=== PATIENT | male | born 1950 | race Caucasian/White ===

== ENCOUNTER 2022-09-19 10:48 | Emergency (ER) | payer MEDICAID, SELFPAY ==
--- NOTE | ~2022-09-19 | XR_ITS ---
EXAMINATION: XR CHEST CLINICAL INFORMATION: Chest pain COMPARISON: None available. TECHNIQUE: 2 views of the chest were obtained. FINDINGS: The lung reeedr are felt to be grossly clear. No infiltrate. No effusion. The cardiac silhouette is within normal limits. Tortuous versus ectatic arch and descending aorta are noted. The hilar structures do not appear pathologically enlarged. XR/XR chest 2V IMPRESSION: No acute finding. As described tortuous versus ectatic arch and descending aorta
--- NOTE | 2022-09-19 10:51 | ECG_ITS ---
Test Reason : CHEST PASIN Blood Pressure : / mmHG Vent. Rate : 055 BPM Atrial Rate : 055 BPM P-R Int : 180 ms QRS Dur : 090 ms QT Int : 442 ms P-R-T Axes : 031 -16 023 degrees QTc Int : 422 ms Sinus bradycardia Minimal voltage criteria for LVH, may be normal variant ( R in aVL ) Borderline ECG No previous ECGs available Referred By: Generic ED Physician Electronically Signed By:MOHSEN BURGESS MD
[2022-09-19 11:05] VITALS: BP 168/52; PULSE 56; RESP 18; TEMP 36.2; O2SAT 97; BMI 29.9
--- NOTE | 2022-09-19 11:06 | ED.GENADULT ---
HPI - General Adult General Chief complaint: Chest Pain <Agustin Martinez - Last Filed: 09/19/22 11:07> Stated complaint: chest pain/ HBP <Agustin Martinez - Last Filed: 09/19/22 11:07> Time Seen by Provider: 09/19/22 16:36 <Agustin Martinez - Last Filed: 09/19/22 11:07> Source: patient <Ricardo Duncan MD - Last Filed: 09/19/22 19:43> Mode of arrival: ambulatory <Ricardo Duncan MD - Last Filed: 09/19/22 19:43> Limitations: no limitations <Ricardo Duncan MD - Last Filed: 09/19/22 19:43> History of Present Illness HPI narrative: Patient bonilla speaking only came with his daughter for off and on chest pain for 2 months patient does have history of hypertension hyperlipidemia had carotid angiogram which showed 80% blockage of the right carotid artery and had a cardiac CT than 08/16 which showed 80% blockage off diagonal coronary artery today while resting at home around 08:00 had chest pain which has been left side with left lasted for half an hour no diaphoresis no nausea no vomiting for the slight short of breath on arrival patient denies any chest patient does take aspirin and Plavix pain is episodic to 3 times a week get worse on exertion prior to today had chest pain 3 days ago <Ricardo Duncan MD - Last Filed: 09/19/22 19:43> Related Data Allergies/adverse reactions: Allergies Allergy/AdvReac Type Severity Reaction Status Date / Time No Known Allergies Allergy Verified 09/19/22 11:04 <Agustin Martinez - Last Filed: 09/19/22 11:07> Review of Systems Review of Systems: Yes all other systems are reviewed and are negative <Ricardo Duncan MD - Last Filed: 09/19/22 19:43> [facility] Social History Social History: Social History Use of substances other than those prescribed or required for medical reasons: No Any prior treatment program specific to substance use: No Advance Directives: No Advance Directives Information Provided: No <Agustin Martinez - Last Filed: 09/19/22 11:07> Physical Exam ED Vital Signs: Vital Signs - 24 hr 09/19/22 11:05 09/19/22 15:59 09/19/22 18:00 Temperature 97.2 F 98.1 F 97.8 F Pulse Rate 56 50 50 Respiratory Rate 18 20 20 Blood Pressure 168/52 H 160/68 H 150/74 H Pulse Oximetry 97 98 97 Oxygen Delivery Method Room Air Room Air Room Air BMI result Body Mass Index 29.9 <Agustin Martinez - Last Filed: 09/19/22 11:07> Vital Signs - 24 hr 09/19/22 11:05 09/19/22 15:59 09/19/22 18:00 Temperature 97.2 F 98.1 F 97.8 F Pulse Rate 56 50 50 Respiratory Rate 18 20 20 Blood Pressure 168/52 H 160/68 H 150/74 H Pulse Oximetry 97 98 97 Oxygen Delivery Method Room Air Room Air Room Air BMI result Body Mass Index 29.9 <Ricardo Duncan MD - Last Filed: 09/19/22 19:43> Appearance: Alert. Oriented X3. No acute distress. No chest pain at this time Eyes: PERRLA, No Nystagmus ENT: Pharynx normal. Oral Mucosa moist Neck: Normal inspection. Neck supple. CVS: Normal heart rate and rhythm. Pulses normal. Respiratory: No respiratory distress. Equal air entry bilateral, no wheezing/rales/rhonchi Abdomen: Soft and nontender. Bowel sounds are present, no mass palpable, no CVA tenderness Skin: Skin warm and dry. Normal skin color. Normal skin turgor. Extremities: No lower extremity edema. No calf tenderness Neuro: Oriented X 3. No motor deficit. No sensory deficit.No cerebellar signs , cranial nerves II-XII intact <Ricardo Duncan MD - Last Filed: 09/19/22 19:43> Course Course Course Narrative: RME- 72-year-old was primarily Arabic speaking presents for evaluation of left-sided chest pain has been present for about 1 week. Plan for EKG, chest x-ray, labs. <Agustin Martinez - Last Filed: 09/19/22 11:07> Medications Administered Discontinued Medications Generic Name Dose Route Start Last Admin Trade Name Freq PRN Reason Stop Dose Admin Aspirin 162 mg 09/19/22 17:06 09/19/22 17:12 Aspirin 81 Mg Tab.Chew PO 09/19/22 17:07 162 mg ONCE ONE Administration <Agustin Martinez - Last Filed: 09/19/22 11:07> Medications Administered Discontinued Medications Generic Name Dose Route Start Last Admin Trade Name Jessica PRN Reason Stop Dose Admin Aspirin 162 mg 09/19/22 17:06 09/19/22 17:12 Aspirin 81 Mg Tab.Chew PO 09/19/22 17:07 162 mg ONCE ONE Administration <Ricardo Duncan MD - Last Filed: 09/19/22 19:43> Medical Decision Making Lab Data MDM Lab Attestation statement: I reviewed the patient's lab results. <Ricardo Duncan MD - Last Filed: 09/19/22 19:43> Result Diagrams: 09/19/22 11:04 09/19/22 11:04 <Agustin Martinez - Last Filed: 09/19/22 11:07> Labs: Lab Results 09/19/22 09/19/22 09/19/22 Range/Units 11:04 11:04 11:04 WBC 5.9 (4.8-10.8) X10*3/uL RBC 4.86 (4.60-5.80) X10*6/uL Hgb 14.5 (14.0-18.0) g/dl Hct 41.7 L (42.0-52.0) % MCV 85.8 (80.0-98.0) fL MCH 29.8 (27.0-33.0) pg MCHC 34.8 (31.0-36.0) g/dl RDW 13.0 (11.0-16.0) % Plt Count 174 (160-400) X10*3/uL MPV 10.8 (9.4-12.4) fL Immature Gran % (Auto) 0.3 (0.0-0.4) % Neut % (Auto) 57.0 (45-73) % Lymph % (Auto) 31.0 (20-40) % [place] % (Auto) 7.6 (2-11) % Eos % (Auto) 3.4 (0-4) % Baso % (Auto) 0.7 (0-2) % Lymph # (Auto) 1.8 (1.2-4.9) X10*3/uL [place] # (Auto) 0.5 (0.1-1.2) X10*3/uL Eos # (Auto) 0.2 (0.0-0.4) X10*3/uL Baso # (Auto) 0.0 (0.0-0.2) X10*3/uL Abs Immat Gran (auto) 0.02 (0.00-0.03) X10*3/uL Absolute Neuts (auto) 3.4 (2.0-8.3) x10*3/uL Absolute Nucleated RBC 0.000 (0.0-0.012) X10*3/uL Nucleated RBC % (auto) 0.0 (0.0-0.2) /100WBC PT (10.0-13.1) SEC INR (0.9-1.1) APTT (26.0-36.4) SEC Sodium 138 (135-145) mmol/L Potassium 4.0 (3.3-5.1) mmol/L Chloride 105 (96-108) mmol/L Carbon Dioxide 23 (22-29) mmol/L Anion Gap 14 (12-20) BUN 14 (9-16) mg/dL Creatinine 0.89 (0.5-1.4) mg/dL Estim Creat Clear Calc 77.3 Estimated GFR > 60 Random Glucose 131 H (60-115) mg/dL Calcium 9.4 (8.4-10.2) mg/dL Phosphorus 3.3 (2.7-4.5) mg/dL Magnesium 1.9 (1.6-2.6) mg/dL Troponin I High Sens < 3.5 (<3.5-35.0) ng/L 09/19/22 09/19/22 Range/Units 18:26 18:26 WBC (4.8-10.8) X10*3/uL RBC (4.60-5.80) X10*6/uL Hgb (14.0-18.0) g/dl Hct (42.0-52.0) % MCV (80.0-98.0) fL MCH (27.0-33.0) pg MCHC (31.0-36.0) g/dl RDW (11.0-16.0) % Plt Count (160-400) X10*3/uL MPV (9.4-12.4) fL Immature Gran % (Auto) (0.0-0.4) % Neut % (Auto) (45-73) % Lymph % (Auto) (20-40) % [place] % (Auto) (2-11) % Eos % (Auto) (0-4) % Baso % (Auto) (0-2) % Lymph # (Auto) (1.2-4.9) X10*3/uL [place] # (Auto) (0.1-1.2) X10*3/uL Eos # (Auto) (0.0-0.4) X10*3/uL Baso # (Auto) (0.0-0.2) X10*3/uL Abs Immat Gran (auto) (0.00-0.03) X10*3/uL Absolute Neuts (auto) (2.0-8.3) x10*3/uL Absolute Nucleated RBC (0.0-0.012) X10*3/uL Nucleated RBC % (auto) (0.0-0.2) /100WBC PT 11.8 (10.0-13.1) SEC INR 1.0 (0.9-1.1) APTT 26.5 (26.0-36.4) SEC Sodium (135-145) mmol/L Potassium (3.3-5.1) mmol/L Chloride (96-108) mmol/L Carbon Dioxide (22-29) mmol/L Anion Gap (12-20) BUN (9-16) mg/dL Creatinine (0.5-1.4) mg/dL Estim Creat Clear Calc Estimated GFR Random Glucose (60-115) mg/dL Calcium (8.4-10.2) mg/dL Phosphorus (2.7-4.5) mg/dL Magnesium (1.6-2.6) mg/dL Troponin I High Sens < 3.5 (<3.5-35.0) ng/L <Agustin Martinez - Last Filed: 09/19/22 11:07> Lab Results 09/19/22 09/19/2223 Range/Units 11:04 11:04 11:04 WBC 5.9 (4.8-10.8) X10*3/uL RBC 4.86 (4.60-5.80) X10*6/uL Hgb 14.5 (14.0-18.0) g/dl Hct 41.7 L (42.0-52.0) % MCV 85.8 (80.0-98.0) fL MCH 29.8 (27.0-33.0) pg MCHC 34.8 (31.0-36.0) g/dl RDW 13.0 (11.0-16.0) % Plt Count 174 (160-400) X10*3/uL MPV 10.8 (9.4-12.4) fL Immature Gran % (Auto) 0.3 (0.0-0.4) % Neut % (Auto) 57.0 (45-73) % Lymph % (Auto) 31.0 (20-40) % [place] % (Auto) 7.6 (2-11) % Eos % (Auto) 3.4 (0-4) % Baso % (Auto) 0.7 (0-2) % Lymph # (Auto) 1.8 (1.2-4.9) X10*3/uL [place] # (Auto) 0.5 (0.1-1.2) X10*3/uL Eos # (Auto) 0.2 (0.0-0.4) X10*3/uL Baso # (Auto) 0.0 (0.0-0.2) X10*3/uL Abs Immat Gran (auto) 0.02 (0.00-0.03) X10*3/uL Absolute Neuts (auto) 3.4 (2.0-8.3) x10*3/uL Absolute Nucleated RBC 0.000 (0.0-0.012) X10*3/uL Nucleated RBC % (auto) 0.0 (0.0-0.2) /100WBC PT (10.0-13.1) SEC INR (0.9-1.1) APTT (26.0-36.4) SEC Sodium 138 (135-145) mmol/L Potassium 4.0 (3.3-5.1) mmol/L Chloride 105 (96-108) mmol/L Carbon Dioxide 23 (22-29) mmol/L Anion Gap 14 (12-20) BUN 14 (9-16) mg/dL Creatinine 0.89 (0.5-1.4) mg/dL Estim Creat Clear Calc 77.3 Estimated GFR > 60 Random Glucose 131 H (60-115) mg/dL Calcium 9.4 (8.4-10.2) mg/dL Phosphorus 3.3 (2.7-4.5) mg/dL Magnesium 1.9 (1.6-2.6) mg/dL Troponin I High Sens < 3.5 (<3.5-35.0) ng/L 09/19/22 09/19/22 Range/Units 18:26 18:26 WBC (4.8-10.8) X10*3/uL RBC (4.60-5.80) X10*6/uL Hgb (14.0-18.0) g/dl Hct (42.0-52.0) % MCV (80.0-98.0) fL MCH (27.0-33.0) pg MCHC (31.0-36.0) g/dl RDW (11.0-16.0) % Plt Count (160-400) X10*3/uL MPV (9.4-12.4) fL Immature Gran % (Auto) (0.0-0.4) % Neut % (Auto) (45-73) % Lymph % (Auto) (20-40) % [place] % (Auto) (2-11) % Eos % (Auto) (0-4) % Baso % (Auto) (0-2) % Lymph # (Auto) (1.2-4.9) X10*3/uL [place] # (Auto) (0.1-1.2) X10*3/uL Eos # (Auto) (0.0-0.4) X10*3/uL Baso # (Auto) (0.0-0.2) X10*3/uL Abs Immat Gran (auto) (0.00-0.03) X10*3/uL Absolute Neuts (auto) (2.0-8.3) x10*3/uL Absolute Nucleated RBC (0.0-0.012) X10*3/uL Nucleated RBC % (auto) (0.0-0.2) /100WBC PT 11.8 (10.0-13.1) SEC INR 1.0 (0.9-1.1) APTT 26.5 (26.0-36.4) SEC Sodium (135-145) mmol/L Potassium (3.3-5.1) mmol/L Chloride (96-108) mmol/L Carbon Dioxide (22-29) mmol/L Anion Gap (12-20) BUN (9-16) mg/dL Creatinine (0.5-1.4) mg/dL Estim Creat Clear Calc Estimated GFR Random Glucose (60-115) mg/dL Calcium (8.4-10.2) mg/dL Phosphorus (2.7-4.5) mg/dL Magnesium (1.6-2.6) mg/dL Troponin I High Sens < 3.5 (<3.5-35.0) ng/L <Ricardo Dnucan MD - Last Filed: 09/19/22 19:43> Independent Interpretation I performed an independent interpretation of an: EKG <Ricardo Duncan MD - Last Filed: 09/19/22 19:43> Interpretation: Sinus bradycardia heart rate 55 beats per minute normal intervals LVH no acute ST changes no acute ischemia <Ricardo Duncan MD - Last Filed: 09/19/22 19:43> Discharge Plan Discharge Clinical Impression: Chest pain <Agustin Martinez - Last Filed: 09/19/22 11:07> Patient Disposition: Home, Self-Care <Agustin Martinez - Last Filed: 09/19/22 11:07> Instructions: Chest Pain (ED) <Agustin Martinez - Last Filed: 09/19/22 11:07> Additional Instructions: Continue your all medication including aspirin and Plavix follow up with grounds person in 2-3 days Report to ER if recurs of pain <Agustin Martinez - Last Filed: 09/19/22 11:07> Referrals: Barber Bailey MD [Physician] - 3 days <Agustin Martinez - Last Filed: 09/19/22 11:07>
[2022-09-19 11:11] LABS: MANUAL DIFF FLAG NO
[2022-09-19 11:13] LABS: Basophils Percent Auto 0.7 % (0-2); Eosinophils Absolute Auto 0.2 X10*3/uL (0.0-0.4); Eosinophils Percent Auto 3.4 % (0-4); Hematocrit 41.7 % (42.0-52.0); Hemoglobin 14.5 g/dl (14.0-18.0); Imm Gran Abs Auto 0.02 X10*3/uL (0.00-0.03); Imm Gran Pct Auto 0.3 % (0.0-0.4); Lymphocytes Absolute Auto 1.8 X10*3/uL (1.2-4.9); Mean Corpuscular HGB Conc 34.8 g/dl (31.0-36.0); Mean Corpuscular Hemoglobin 29.8 pg (27.0-33.0); Mean Corpuscular Volume 85.8 fL (80.0-98.0); Mean Platelet Volume 10.8 fL (9.4-12.4); Monocytes Absolute Auto 0.5 X10*3/uL (0.1-1.2); Monocytes Percent Auto 7.6 % (2-11); Neutrophils Absolute Auto 3.4 x10*3/uL (2.0-8.3); Platelet Count 174 X10*3/uL (160-400); Red Blood Count 4.86 X10*6/uL (4.60-5.80); White Blood Count 5.9 X10*3/uL (4.8-10.8)
[2022-09-19 11:41] LABS: Anion Gap 14 (12-20); Blood Urea Nitrogen 14 mg/dL (9-16); Calcium 9.4 mg/dL (8.4-10.2); Carbon Dioxide 23 mmol/L (22-29); Chloride 105 mmol/L (96-108); Creatinine Clr Calc Pharmacy 77.3; Estimated Glomerular Filt Rate > 60; Glucose Random 131 mg/dL (60-115); Magnesium 1.9 mg/dL (1.6-2.6); Phosphorus 3.3 mg/dL (2.7-4.5); Sodium 138 mmol/L (135-145)
[2022-09-19 11:54] LABS: Troponin-I High Sensitivity < 3.5 ng/L (<3.5-35.0)
[2022-09-19 15:59] VITALS: BP 160/68; PULSE 50; RESP 20; TEMP 36.7; O2SAT 98
--- NOTE | 2022-09-19 16:00 | MHC.EDTECH ---
this pct assumed care of pt at 1500 ,vitals sign taken pt was hooked up to campus monitor ,pt resting quietly in bed .
[2022-09-19] MEDS: Aspirin 81 MG TAB.CHEW 162 MG PO (17:12)
[2022-09-19 18:00] VITALS: BP 150/74; PULSE 50; RESP 20; TEMP 36.6; O2SAT 97
[2022-09-19 18:41] LABS: Prothrombin Time 11.8 SEC (10.0-13.1)
[2022-09-19 18:43] LABS: Partial Thromboplastin Time 26.5 SEC (26.0-36.4)
[2022-09-19 19:09] LABS: Troponin-I High Sensitivity < 3.5 ng/L (<3.5-35.0)
[2022-09-19 19:46] VITALS: BP 154/66; PULSE 51; RESP 16; TEMP 36.8; O2SAT 98
--- NOTE | 2022-09-19 20:01 | PC.NURSE ---
Discharge instructions reviewed with pt. Pt verbalizes understanding.
== END 2022-09-19 20:01 | disposition home or self-care (01) ==
PROVIDERS: Physician Assistant; Emergency Provider Internal Medicine; PCP Nurse Practitioner Family
DX: R07.9 Chest pain, unspecified (principal); R06.02 Shortness of breath; I10 Essential (primary) hypertension; E78.5 Hyperlipidemia, unspecified; Z79.02 Long term (current) use of antithrombotics/antiplatelets; Z79.82 Long term (current) use of aspirin
CPT/HCPCS: 36415; 71046; 80048; 83735; 84100; 84484; 85025; 85610; 85730; 93005; 99283; 99285

== ENCOUNTER 2022-11-29 08:03 | Outpatient (REF) | payer MEDICAID, SELFPAY ==
[2022-11-29 08:20] LABS: MANUAL DIFF FLAG NO
[2022-11-29 09:53] LABS: Basophils Percent Auto 0.4 % (0-2); Eosinophils Absolute Auto 0.2 X10*3/uL (0.0-0.4); Eosinophils Percent Auto 4.2 % (0-4); Hematocrit 40.6 % (42.0-52.0); Hemoglobin 13.6 g/dl (14.0-18.0); Imm Gran Abs Auto 0.01 X10*3/uL (0.00-0.03); Imm Gran Pct Auto 0.2 % (0.0-0.4); Lymphocytes Absolute Auto 1.8 X10*3/uL (1.2-4.9); Lymphocytes Percent Auto 34.5 % (20-40); Mean Corpuscular HGB Conc 33.5 g/dl (31.0-36.0); Mean Corpuscular Hemoglobin 29.3 pg (27.0-33.0); Mean Corpuscular Volume 87.5 fL (80.0-98.0); Mean Platelet Volume 12.3 fL (9.4-12.4); Monocytes Absolute Auto 0.5 X10*3/uL (0.1-1.2); Monocytes Percent Auto 10.3 % (2-11); Neutrophils Absolute Auto 2.7 x10*3/uL (2.0-8.3); Neutrophils Percent Auto 50.4 % (45-73); Platelet Count 159 X10*3/uL (160-400); Red Blood Count 4.64 X10*6/uL (4.60-5.80); Red Cell Distribution Width 13.2 % (11.0-16.0); White Blood Count 5.3 X10*3/uL (4.8-10.8)
[2022-11-29 10:42] LABS: Alanine Aminotransferase 34 U/L (0-40); Albumin Level 4.3 g/dL (3.5-5.0); Anion Gap 14 (12-20); Aspartate Amino Transferase 30 U/L (5-37); Bilirubin Total 1.2 mg/dL (0.0-1.0); Blood Urea Nitrogen 16 mg/dL (9-16); Calcium 9.6 mg/dL (8.4-10.2); Carbon Dioxide 23 mmol/L (22-29); Chloride 105 mmol/L (96-108); Cholesterol 215 mg/dL; Estimated Glomerular Filt Rate > 60; Glucose Fasting 136 mg/dL (60-99); HDL Cholesterol 52 mg/dL; LDL Cholesterol Calculated 119 mg/dl; Potassium 3.8 mmol/L (3.3-5.1); Sodium 138 mmol/L (135-145); Total Protein 6.9 g/dL (6.5-8.0); Triglycerides 222 mg/dL
[2022-11-29 10:44] LABS: Creatinine Urine 67.77 mg/dL; Microalbumin Urine < 5.0 mg/L
[2022-11-29 10:59] LABS: Alkaline Phosphatase 52 U/L (39-117)
[2022-11-29 11:22] LABS: TSH reflex Free T4 2.91 uIU/mL (0.32-4.0); Vitamin B12 526 pg/mL (200-900); Vitamin D 25-OH Total 26.9 ng/mL (>30)
== END 2022-11-29 08:04 | disposition home or self-care (01) ==
LOC: HO.LAB 08:03
PROVIDERS: PCP Nurse Practitioner Family; Visit Provider Nurse Practitioner Family
DX: I10 Essential (primary) hypertension (principal); E78.5 Hyperlipidemia, unspecified
CPT/HCPCS: 36415; 80053; 80061; 82043; 82306; 82607; 82746; 84443; 85025